=== PATIENT | female | born 1960 | race Caucasian/White ===

== ENCOUNTER → 2019-05-18 | Outpatient (CLI) | payer BC ==
[2019-05-18 11:24] VITALS: BP 118/82; PULSE 84; RESP 18; TEMP 97.6
--- NOTE | 2019-05-18 11:56 | P.GSHP ---
History of Present Illness H&P Date: 05/18/19 Chief Complaint: abnormal mammogram left breast/core biopsy atypia Tere is a 59 year old white female seen in consultation for Dr. Moran regarding a core biopsy of the left breast which revealed atypia. The patient underwent a bilateral screening mammogram in July 2018. At that time a targeted left breast ultrasound was recommended. Additional views of the left breast were also recommended. These were performed in July 2018 and a 3 mm lesion was noted to be present. The patient was recommended to have an ultrasound and ultrasound of July 2018 revealed a 0.2 x 0.2 cm hypoechoic mass at the 8 o'clock position 2 cm from the nipple corresponding to the mammographic abnormality. Six-month follow-up of this lesion by ultrasound was recommended. The patient in February 2019 had a repeat ultrasound of the left breast. This revealed 2 cm from the nipple a 0.4 x 0.4 cm lesion. Ultrasound-guided core biopsy was recommended. Ultrasound core biopsy revealed an area of atypia. The patient subsequently had a mammogram of the left breast for clip placement. This was performed on . This revealed postop changes with metallic microclip at the biopsy site in the o'clock position the retroareolar region of the left breast. Started as a routine screening mammogram. The patient does not feel anything of concern in her breast even at this time. The patient is not complaining of breast pain. The patient is not complaining of any nipple discharge or skin changes. She has no recent history of infection or trauma to the breast. She has not had any prior breast biopsies until this one. Family history: none Hormonal History: menarche: 13 , breast fed: yeas, first born at 26 menopause: 53 BCP: 20 years hormones: none Past surgical history: 1. foot Surgery 2. Right oophrectomy, tubal Medical History: 1. high cholesterol Social History: smoke: none alcohol: occasional drugs: none - Constitutional Constitutional: Denies chills, Denies fever - EENT Eyes: denies blurred vision, denies pain Ears: deny: decreased hearing, tinnitus Ears, nose, mouth and throat: Denies headache, Denies sore throat - Breasts Breasts: bilateral: as per HPI - Cardiovascular Cardiovascular: Denies chest pain, Denies shortness of breath - Respiratory Respiratory: Denies cough, Denies 7 - Gastrointestinal Gastrointestinal: Denies abdominal pain, Denies diarrhea, Denies nausea, Denies vomiting - Genitourinary (Female) Genitourinary: Denies dysuria, Denies hematuria - Menstruation Menstruation: Reports postmenopausal - Musculoskeletal Comment: arthritis, tendonitis in right shoulder Musculoskeletal: Reports myalgias - Integumentary Comment: hives ? cause Integumentary: Denies pruritus, Denies rash - Neurological Neurological: Denies numbness, Denies weakness - Psychiatric Psychiatric: Denies anxiety, Denies depression - Endocrine Endocrine: Denies fatigue, Denies weight change - Hematologic/Lymphatic Comment: none - Allergic/Immunologic Allergic/Immunologic: Reports seasonal allergies Past Medical History Past Medical History: Hyperlipidemia, Neurologic Disorder History of Any Multi-Drug Resistant Organisms: None Reported Past Surgical History: Tubal Ligation Additional Past Surgical History / Comment(s): right oophorectomy and tubal ligation; right foot surgery; Past Anesthesia/Blood Transfusion Reactions: No Reported Reaction Past Psychological History: No Psychological Hx Reported Smoking Status: Former smoker Additional Past Alcohol Use History / Comment(s): Smoked from age 17 to 19 - Past Family History Father Family Medical History: No Reported History Mother Family Medical History: COPD Additional Family Medical History / Comment(s): Heart attack 12/2010 Medications and Allergies Home Medications Medication Instructions Recorded Confirmed Type Calcium Carbonate/Vitamin D3 1 each PO QAM 05/18/19 05/18/19 History [Calcium 500-Vit D3 600 Tablet] Echinacea 500 mg PO QAM 05/18/19 05/18/19 History Flaxseed Oil 1,000 mg PO HS 05/18/19 05/18/19 History Glucosam/Marc-Msm1/C/Heber/Bosw 1 each PO QAM 05/18/19 05/18/19 History [Glucosamine-Chondroitin Tablet] Multivit/Folic Acid/Vit K1 1 each PO QAM 05/18/19 05/18/19 History [One-A-Day Women's 50 Plus Tab] Allergies Allergy/AdvReac Type Severity Reaction Status Date / Time No Known Allergies Allergy Unverified 05/18/19 11:06 Surgical - Exam Vital Signs Temp Pulse Resp BP Pulse Ox 97.6 F 84 18 118/82 99 05/18/19 11:08 05/18/19 11:08 05/18/19 11:08 05/18/19 11:08 05/18/19 11:08 BMI 30.1 - General well developed, well nourished, no distress - Eyes normal ocular movement - ENT normal pinna, normal nares, no hearing loss, no congestion - Neck no masses, trachea midline - Respiratory normal expansion, normal respiratory effort, clear to auscultation - Cardiovascular Rhythm: regular Heart Sounds: normal: S1, S2 - Abdomen Abdomen: soft, non tender, no guarding, no rigid, no rebound - Integumentary normal turgor - Neurologic no disoriented, no combative - Musculoskeletal normal gait, normal posture - Psychiatric oriented to time, oriented to person, oriented to place, speech is normal, memory intact breast exam: right breast: Multi-positional exam no dominant mass or nodules of concern, fibrocystic changes Right axilla: No adenopathy of concern Left breast: Multiple positional exam fibrocystic changes of dominant mass or nodules of concern Left axilla: No adenopathy of concern Bra 36C, ptosis grade2/3 Right breast is slightly larger than the left breast Results mammogram and ultrasound reports reviewed, pathology report reviewed Assessment and Plan Assessment: impression: 1. Radiographic abnormality left breast 2. Ultrasound core biopsy radiographic abnormality left breast reveals a 2. 3. Fibrocystic breast changes 4. Arthritis 5. High cholesterol Plan: 1. Needle localization excisional biopsy area of atypia left breast via a donut or crescent mastopexy, the patient does have grade 2/3 ptosis and I have discussed approaching this via. Periareolar incision versus a donut or crescent mastopexy incision. The patient would prefer to have the mastopexy performed with the procedure. Patient benefits of the procedure were discussed with the patient. She understands and wishes to proceed. This will be scheduled for the near future Cc: Dr. Hutchins Encounter 30 minutes, > 50% of time planning and counselling Time with Patient: Greater than 30
== END ==
LOC: WWCWWP 10:51
PROVIDERS: ATTEND Surgery
DX: Z53.9 Procedure and treatment not carried out, unspecified reason (principal)

== ENCOUNTER → 2019-07-27 | Outpatient (CLI) | payer BC ==
--- NOTE | 2019-07-27 13:41 | MM ---
Reason for exam: additional evaluation requested from prior study. Last mammogram was performed 1 year and 1 month ago. History: Took hormonal contraceptives for 24 years beginning at age 17. Physical Findings: Breast exam performed by Dr. Joseph. MG 3D Diag Mammo W/Cad RT CC and MLO view(s) were taken of the right breast. Prior study comparison: July 11, 2018, mammogram. December 02, 2010, mammogram. The breast tissue is heterogeneously dense. This may lower the sensitivity of mammography. There is no discrete abnormality. These results were verbally communicated with the patient and result sheet given to the patient on 07/27/19. ASSESSMENT: Benign, BI-RAD 2 RECOMMENDATION: Routine screening mammogram of both breasts in 1 year. Manage patient on a clinical basis. Left breast surgery scheduled.
== END | disposition home or self-care (01) ==
LOC: RADMAMWWP 12:20
PROVIDERS: ATTEND Surgery
DX: R92.8 Other abnormal and inconclusive findings on diagnostic imaging of breast (principal)
CPT/HCPCS: 77061; 77065

== ENCOUNTER 2019-08-01 07:23 | Day surgery (SDC) | payer BC ==
[2019-07-27 15:10] VITALS: BMI 30.1
[~2019-08-01 07:23] MED LIST: DEXAMETHASONE SOD PHOSPHATE 10 MG/ML 1 ML VIAL IV ONE; HEPARIN SODIUM,PORCINE 5,000 UNIT/ML 1 ML VIAL SQ ONE; HYDROmorphone 0.5 MG/0.5 ML SYRINGE IVP PRN; LACTATED RINGERS 1,000 ML IV SCH; LIDOCAINE 1% (10MG/ML) FOR IV START INTRADERMA PRN; MIDAZOLAM 2 MG/2 ML VIAL IV PRN; ONDANSETRON 4 MG/2 ML VIAL IVP ONE; Pre Op ABX Message 1 EACH MISC MISCELLANE ONE; SCOPOLAMINE 1.5MG/72HR PATCH TRANSDERM ONE
[2019-08-01] MEDS ORDERED: ALPRAZolam 0.5 MG TAB PO ONE (07:55)
[2019-08-01] MEDS ORDERED: LIDOCAINE 1% INJ 10MG/ML (20 ML MDV) SQ ONE ×2 (09:11→10:02)
[2019-08-01] MEDS ORDERED: LIDOCAINE 1% INJ 10MG/ML (20 ML MDV) ONE (09:58)
[2019-08-01] MEDS ORDERED: PROPOFOL 10 MG/ML 20 ML VIAL IV ONE (09:58)
[2019-08-01] MEDS ORDERED: MIDAZOLAM 2 MG/2 ML VIAL ONE (09:58)
[2019-08-01] MEDS ORDERED: fentaNYL (PF) 50 MCG/ML 2 ML AMP ONE (09:58)
[2019-08-01] MEDS ORDERED: LACTATED RINGERS 1,000 ML IV ONE (10:35)
--- NOTE | 2019-08-01 12:03 | P.OP ---
Date of Procedure: 08/01/19 Preoperative Diagnosis: left Breast core biopsy with atypia Postoperative Diagnosis: Same Procedure(s) Performed: needle Localization excisional biopsy area of concern in the left breast, done via a crescent mastopexy with tissue transfer Anesthesia: local Surgeon: Jaye Joseph Estimated Blood Loss (ml): 8 IV fluids (ml): 1,000 Pathology: other (breast tissue) Condition: stable Disposition: same day Indications for Procedure: Core biopsy with atypia Operative Findings: Dense breast tissue Description of Procedure: Tere is a 51-year-old white female who is status post left breast core biopsy which revealed an area of atypia. She was scheduled for a needle localization excisional biopsy. A crescent mastopexy with tissue transfer was discussed with the patient. The patient was given the option of the mastopexy incision versus a standard periareolar incision and opted for the mastopexy incision understanding and may be some asymmetry between the breast. Additional risks including bleeding, infection, reaction to the anesthetic were discussed with the patient. The risk of not obtaining the clip was discussed as well. The patient was marked in the preoperative area. The area for the new aeorolar superior aspect was marked. A crescent outline was marked. The superior aspect at 12:00 was 2 cm above the present location of the areolar. The patient was taken to the operating room and following induction of anesthesia the left breast was prepped and draped in a sterile fashion. The skin in the crescent area was de-epithelialized. The breast parenchyma was entered in the crescent area. The needle was brought into the area of work. Circumferential dissection around the needle was performed. The specimen was painted for orientation. Additional tissue was removed anteriorly and laterally. This was marked with a suture. Radiograph of the specimen did not reveal the clip and therefore additional tissue was obtained. This was painted for orientation. Radiograph again did not reveal the clip however it was felt that the area had been adequately sampled. The specimen was reviewed with radiology and it is recommended that the suction material being radiographed which was performed. Suction material caught in the trap was able to be radiographed. The clip was not seen in this material. The additional suction fluid was not able to be radiographed. Despite this no additional tissue was removed as it was felt that the area of concern had been sampled. Additional suction liquid was not radiographed. Tissue was mobilized medially and laterally to close the defect. Total mobilization included 54.5 cm. This was closed using 3-0 Vicryl sutures from medial to lateral perspective. Prior to closure titanium clips were placed to bismark the cavity. The skin was reapproximated using 3-0 Vicryl suture in the dermal tissue followed by 4-0 Monocryl in the subcuticular tissue. 10 mL of 1% lidocaine were injected. Sterile dressing was applied. The patient tolerated the procedure in stable condition.
--- NOTE | 2019-08-01 12:05 | P.DS ---
Providers Attending physician: Jaye Joseph Primary care physician: Lamberto Hutchins Plan - Discharge Summary Discharge Rx Participant: Yes New Discharge Prescriptions: No Action Flaxseed Oil 1,000 mg PO HS Calcium Carbonate/Vitamin D3 [Calcium 500-Vit D3 600 Tablet] 1 each PO QAM Multivit/Folic Acid/Vit K1 [One-A-Day Women's 50 Plus Tab] 1 each PO QAM Glucosam/Marc-Msm1/C/Heber/Bosw [Glucosamine-Chondroitin Tablet] 1 each PO QAM Echinacea 500 mg PO QAM Cannabidiol (Cbd) Extract [Epidiolex] 0 mg PO DIRECTED PRN PRN Reason: Pain Cetirizine HCl [Zyrtec] 5 mg PO DAILY Discharge Medication List Calcium Carbonate/Vitamin D3 [Calcium 500-Vit D3 600 Tablet] 1 each PO QAM 05/18/19 [History] Echinacea 500 mg PO QAM 05/18/19 [History] Flaxseed Oil 1,000 mg PO HS 05/18/19 [History] Glucosam/Marc-Msm1/C/Heber/Bosw [Glucosamine-Chondroitin Tablet] 1 each PO QAM 05/18/19 [History] Multivit/Folic Acid/Vit K1 [One-A-Day Women's 50 Plus Tab] 1 each PO QAM 05/18/19 [History] Cannabidiol (Cbd) Extract [Epidiolex] 0 mg PO DIRECTED PRN 07/27/19 [History] Cetirizine HCl [Zyrtec] 5 mg PO DAILY 08/01/19 [History] Follow up Appointment(s)/Referral(s): Jaye Joseph MD [STAFF PHYSICIAN] - 1 Week Activity/Diet/Wound Care/Special Instructions: do not drive for 24 hours after discharge may shower after 48 hours Discharge Disposition: HOME SELF-CARE
[2019-08-01 12:14] VITALS: TEMP 98.2
[2019-08-01 12:50] VITALS: RESP 17
[2019-08-01] MEDS ORDERED: HYDROcodone/APAP 5-325MG 1 EACH TAB PO ONE (13:03)
[2019-08-01 13:06] VITALS: BP 138/91; PULSE 77
--- NOTE | 2019-08-01 15:40 | MM ---
EXAMINATION TYPE: MG pre op needle loc LT DATE OF EXAM: 08/01/2019 COMPARISON: 07/27/2019 mammogram CLINICAL HISTORY: Abnormal mammogram TECHNIQUE: Needle localization with wire placement and surgical excision of area of concern in the le ft breast. FINDINGS: The procedure of needle localization with wire placement and than surgical excision was exp lained to the patient. Benefits, alternatives, and risks were discussed. An informed consent was th en obtained. A timeout was performed. The shortest pathway for procedure was reviewed. In consultation with the surgeon, the decision was f or a superior approach. The overlying skin was prepped and draped in usual sterile fashion. Lidocain e was used as anesthetic into the skin and subcutaneous tissue up to the level of area of concern. A 7 cm needle was used. It was placed via a superior approach under mammographic guidance. Subsequen t 90 degrees mammogram show the needle to be in satisfactory position relative to the targeted area. At this point, wire was placed and the needle was withdrawn. The wire was fixed to patient's skin. Images were marked for surgeon. Images are reviewed with the surgeon prior to surgery. The patient tolerated the procedure well without any immediate complication. Patient was transferred to presurgical holding. Specimen: Specimen arrived from the OR. The wire is present within the specimen. However, the localiz ed core marker cannot be visualized. A small adjacent specimen is reported by the surgeon to be the p ortion adjacent to the wire. The OR was notified surgical clip was not present. A second specimen was provided. The core marker was not clearly identified. The suctioned material was x-rayed for the cor e marker. Core marker was not identified. Case was discussed with the surgeon. Short-term follow-up in 3-6 months mammogram is recommended. Cor relation with pathology is recommended. IMPRESSION: 1. Successful wire localization left breast core marker. 2. Excision of the core marker cannot be documented. Supervisor Brine tissue through this region howeve r is provided in 3 specimens pathology by surgery. Recommendations: 1. Follow-up mammogram in 3-6 months. 2. Close correlation with radiology and pathology. 3. Final recommendations are pending pathology results.
== END 2019-08-01 14:28 | disposition home or self-care (01) ==
LOC: OR 07:23
PROVIDERS: ATTEND Surgery
DX: N60.92 Unspecified benign mammary dysplasia of left breast (principal); N60.12 Diffuse cystic mastopathy of left breast; N62 Hypertrophy of breast; E78.5 Hyperlipidemia, unspecified; M19.90 Unspecified osteoarthritis, unspecified site; G43.909 Migraine, unspecified, not intractable, without status migrainosus; E66.9 Obesity, unspecified; E78.00 Pure hypercholesterolemia, unspecified; M75.91 Shoulder lesion, unspecified, right shoulder; Z98.890 Other specified postprocedural states; Z68.30 Body mass index [BMI] 30.0-30.9, adult; Z87.891 Personal history of nicotine dependence; Z98.51 Tubal ligation status; Z90.721 Acquired absence of ovaries, unilateral; Z79.899 Other long term (current) drug therapy
CPT/HCPCS: 19125; 14301; 19281; 88305; 88307; 76098; J2250; J1644; J1100; J2405; J2001; J3010; J2704

== ENCOUNTER → 2019-08-04 | Outpatient (CLI) | payer BC ==
[2019-08-04 07:59] VITALS: BP 144/90; PULSE 82; RESP 16; TEMP 97.7
--- NOTE | 2019-08-04 08:15 | P.PN ---
Subjective Progress Note Date: 08/04/19 Principal diagnosis: Postoperative evaluation of the needle local excisional biopsy left breast Tere is a 59-year-old white female status post needle localization and excisional biopsy of an area of atypia noted on core biopsy of the left breast. Pathology revealed benign breast with previous biopsy site and fibrocystic changes. The radiograph of the specimen did not reveal the clip which had been placed at the time of the core biopsy. The pathology did indicate that the previous biopsy site had been sampled. The patient is complaining of some discomfort in the lateral aspect of the breast, but appears to be improving. Objective - Vital Signs Vital signs: Vital Signs Temp 97.7 F 08/04/19 07:54 Pulse 82 08/04/19 07:54 Resp 16 08/04/19 07:54 BP 144/90 08/04/19 07:54 Pulse Ox 98 08/04/19 07:54 Intake & Output 08/03/19 08/04/19 08/04/19 18:59 06:59 18:59 Weight 74.843 kg - EENT Eyes: Present: EOMI ENT: Present: hearing grossly normal - Respiratory Respiratory: bilateral: CTA - Cardiovascular Rhythm: regular Heart sounds: normal: S1, S2 - Integumentary Integumentary Comment(s): Incision left breast clean and dry, no evidence of infection, no evidence of hematoma Attention to the lateral aspect of the breast does not reveal anything of physical exam of concern Integumentary: Present: normal turgor Assessment and Plan Assessment: Impression: 1. Patient status post needle localization excisional biopsy of the area of core biopsy which revealed atypia pathology benign 2. Clip was not present in the biopsy specimen although the pathology revealed that the previous biopsy site had been sampled 3. Mild discomfort in the lateral aspect of the breast which appears to be improving Plan: 1. Repeat left breast mammogram in 4 months to evaluate if the clip remains in the breast 2. Follow-up in 2 weeks 3. Patient to call sooner if she has any questions or concerns CC:Dr. Hutchins
== END | disposition home or self-care (01) ==
LOC: WWCWWP 07:44
PROVIDERS: ATTEND Surgery
DX: Z53.9 Procedure and treatment not carried out, unspecified reason (principal)

== ENCOUNTER → 2019-08-04 | Outpatient (CLI) | payer BC ==
[2019-08-04 08:11] LABS: Basophils % (A) 0 %; Eosinophils # (A) 0.1 k/uL (0-0.7); Eosinophils % (A) 1 %; HCT 44.5 % (34.0-46.0); HGB 14.6 gm/dL (11.4-16.0); Lymphocytes # (A) 2.2 k/uL (1.0-4.8); Lymphocytes % (A) 22 %; MCH 27.9 pg (25.0-35.0); MCHC 32.8 g/dL (31.0-37.0); MCV 84.9 fL (80.0-100.0); Mean Platelet Volume 6.7; Monocytes # (A) 0.5 k/uL (0-1.0); Monocytes % (A) 5 %; Neutrophils # (A) 7.2 k/uL (1.3-7.7); Neutrophils % (A) 70 %; Platelet Count 364 k/uL (150-450); RBC 5.24 m/uL (3.80-5.40); RDW 13.2 % (11.5-15.5); WBC 10.2 k/uL (3.8-10.6)
[2019-08-04 16:25] LABS: African American GFR (CKD) 116.4 (60.0-200.0); Albumin 4.4 g/dL (3.80-4.90); Albumin/Globulin Ratio 1.69 (1.60-3.17); Anion Gap 9.7 mmol/L (4.00-12.00); Calcium 9.6 mg/dL (8.7-10.3); Carbon Dioxide 26.3 mmol/L (21.6-31.8); Chol/HDL Ratio 3.04; Globulin 2.6 g/dL (1.6-3.3); LDL Cholesterol,Calculated 141.6 mg/dL (0.0-131.0); Non-African American GFR(CKD) 100.5 (60.0-200.0); Potassium 4.7 mmol/L (3.5-5.5); Total Bilirubin 0.4 mg/dL (0.3-1.2); VLDL Calculation 21.4 mg/dL (5.00-40.00)
== END | disposition home or self-care (01) ==
LOC: LABWHC1 07:25
PROVIDERS: ATTEND Family Medicine
DX: Z00.00 Encounter for general adult medical examination without abnormal findings (principal); E78.00 Pure hypercholesterolemia, unspecified
CPT/HCPCS: 36415; 80053; 80061; 85025